=== PATIENT | female | born 1975 | race Caucasian/White ===

== ENCOUNTER → 2018-10-22 | Outpatient (CLI) | payer BC ==
[~2018-10-22] MED LIST: NORCO 325 MG-51 TAB PO
== END ==
LOC: COL.RAD 14:15
DX: N20.2 Calculus of kidney with calculus of ureter (principal)

== ENCOUNTER 2020-01-17 08:42 | Day surgery (SDC) | payer BC ==
[~2020-01-17] VITALS: Ht 157.5 cm; Wt 128.1 kg
[2020-01-17 09:10] VITALS: BP 131/91; PULSE 69; TEMP 98.4
[2020-01-17] MEDS ORDERED: NEURONTIN600 MG/TAB PO (09:13)
[2020-01-17 10:30] VITALS: BP 122/100; PULSE 86; TEMP 97
--- NOTE | 2020-01-17 10:30 | NUR ---
Pt to GI bay 5 via cart from ENDO. Pt awake and alert. Pt ambulated to recliner with stand by assistance. Denies pain or nausea. Muffin and water given per pt request. Will continue to monitor. Call light within reach.
[2020-01-17 10:45] VITALS: BP 133/75; PULSE 72
--- NOTE | 2020-01-17 10:45 | NUR ---
Pt tolerating food and fluids without difficulties. Call light within reach.
[2020-01-17 11:00] VITALS: BP 122/72; PULSE 75
--- NOTE | 2020-01-17 11:00 | NUR ---
Pt continues to rest. Denies needs. Call light within reach.
--- NOTE | 2020-01-17 11:15 | NUR ---
Discharge instructions reviewed. Pt voices understanding. IV site discontinued with all parts intact. Pt up to dress. Call light within reach.
--- NOTE | 2020-01-17 11:28 | NUR ---
Pt escorted to private car via wheel chair. Pt accompanied home by her .
== END 2020-01-17 11:28 | disposition home or self-care (01) ==
LOC: SDCO 08:42
DX: D12.4 Benign neoplasm of descending colon (principal); Z80.0 Family history of malignant neoplasm of digestive organs; R19.7 Diarrhea, unspecified; K64.1 Second degree hemorrhoids; K62.89 Other specified diseases of anus and rectum; R93.3 Abnormal findings on diagnostic imaging of other parts of digestive tract; K92.1 Melena; E66.01 Morbid (severe) obesity due to excess calories; Z68.43 Body mass index [BMI] 50.0-59.9, adult; Z90.710 Acquired absence of both cervix and uterus; Z90.49 Acquired absence of other specified parts of digestive tract; Z20.828 Contact with and (suspected) exposure to other viral communicable diseases
CPT/HCPCS: J2704; J7120

== ENCOUNTER 2021-04-30 07:29 | Day surgery (SDC) | payer BC ==
[~2021-04-30] VITALS: Ht 157.5 cm; Wt 122.1 kg
[~2021-04-30 07:29] MED LIST changes: +NEURONTIN600 MG/TAB PO
[2021-04-30 08:10] VITALS: BP 151/95; PULSE 89; TEMP 98.8
[2021-04-30] MEDS ORDERED: INDOCIN50 MG PO (08:40)
[2021-04-30] MEDS ORDERED: ZOFRAN 4MG T4 MG/TAB PO (08:40)
[2021-04-30] MEDS ORDERED: FLOMAX 0.40.4 MG/CAP PO (08:40)
[2021-04-30] MEDS ORDERED: PERCOCET 325 MG1 TA2 PO (08:41)
[2021-04-30 11:10] VITALS: BP 140/64; PULSE 78; TEMP 97.5
--- NOTE | 2021-04-30 11:10 | NUR ---
Patient arrived back into bay 6 from PACU. Patient awake and alert. Report recieved from [facility]. Patient's at bedside. Patient requesting water and blueberry muffin. Complaint of pressure/pain in pelvic area. Educated patient to eat something and then have pain medication to decrease chance of nausea/vomiting, patient verbalized understanding.
[2021-04-30 11:25] VITALS: BP 137/88; PULSE 71
--- NOTE | 2021-04-30 11:25 | NUR ---
Patient vitally stable. at bedside. Patient toleated food and drink well. Percocet given per MAR. Patient denies nausea at this time. Went to restroom with stand by assist.
[2021-04-30 11:40] VITALS: BP 128/77; PULSE 81
--- NOTE | 2021-04-30 11:45 | NUR ---
Went through discharge instructions with patient and . Office to call with follow up appointment. and patient verbalized understanding to education. IV removed without complications. Patient to get dressed with assistance from .
--- NOTE | 2021-04-30 12:00 | NUR ---
Patient escorted to patient entrance via wheelchair. Patient's along side. Patient got into personal vehicle unassisted and left in the care of her .
[2021-04-30 14:46] VITALS: BP 140/64; PULSE 71; TEMP 97.5
== END 2021-04-30 12:00 | disposition home or self-care (01) ==
LOC: SDCO 07:29
DX: N20.1 Calculus of ureter (principal); N23 Unspecified renal colic; F17.290 Nicotine dependence, other tobacco product, uncomplicated
CPT/HCPCS: C1769; C2617; J1100; J1170; J1885; J2250; J2405; J2550; J2704; J3010; J7120; Q9967